=== PATIENT | female | born 1935 | race Caucasian/White ===

== ENCOUNTER 2019-12-15 10:31 | Outpatient (CLI) | payer MEDICARE, OTHER, SELFPAY ==
--- NOTE | 2019-12-15 10:53 | MR_ITS ---
WS: [id number] MRI HEAD WITH CONTRAST WITH ATTENTION TO THE INTERNAL AUDITORY CANALS TECHNIQUE: Sagittal T1, T2 axial, T2 axial flair, axial susceptibility weighted imaging, axial diffus ion weighted images, and coronal T2 images were obtained. Pre and post T1 axial and post T1 coronal i mages. ADC and FSPGR images. Post gadolinium images with attention to the internal auditory canals. A xial fiesta imaging. CLINICAL INFORMATION: DIZZINESS AND GIDDINESS COMPARISON: None. FINDINGS: No evidence of restricted diffusion to suggest acute ischemia. Ventricular system and basal cisterns are patent. Mild small vessel changes. Moderate parenchymal volume loss. Small amount of chronic isch emia in the right frontal subcortical white matter. Normal posterior fossa. Normal vascular flow void s at the skull base. No extra-axial fluid collections. No evidence of mass or mass effect. Mild mucosal thickening in the mastoid air cells. Mild mucosal thickening in the paranasal sinuses. N o hemosiderin on the susceptibility weighted images. Proximal 7th and 8th cranial nerves are normal in appearance. Normal trigeminal nerve root entry zone s. No evidence of enhancing IAC or CP angle mass. No abnormal intracranial enhancement. Normal visual ized dural venous sinuses. MR/MR iac's wo/w con* [id number] IMPRESSION: 1. No evidence of restricted diffusion to suggest acute ischemia. 2. Mild small vessel changes with moderate parenchymal volume loss. 3. Paranasal sinuses and mastoid air cells are well aerated. 4. Proximal 7th and 8th cranial nerves are normal in appearance. No evidence o f enhancing IAC or CP angle mass. 5. No abnormal intracranial enhancement. 6. No hemosiderin and on the susceptibly weighted images.
[2019-12-15 12:04] LABS: Blood Urea Nitrogen 12 mg/dL (8-23)
== END 2019-12-15 10:32 | disposition home or self-care (01) ==
LOC: RADSHAW 10:34
PROVIDERS: PCP Nurse Practitioner Family; Visit Provider Specialist
DX: R42 Dizziness and giddiness (principal)
CPT/HCPCS: 36415; 70553; 82565; 84520; A9579

== ENCOUNTER 2020-02-01 12:02 | Outpatient (CLI) | payer MEDICARE, OTHER, SELFPAY ==
--- NOTE | 2020-02-01 12:10 | MR_ITS ---
WS: [id number] MRI CERVICAL SPINE NONCONTRAST TECHNIQUE: Sagittal T1, T2 and STIR imaging. Axial T2, gradient, and fiesta imaging. CLINICAL INFORMATION: CERVICAL RADICULOPATHY COMPARISON: None. FINDINGS: Mild cervical curve. Exaggeration of the normal cervical lordosis. Mild spondylitic changes with disc osteophyte complexes worse at C5-C6 and C6-C7. C2-C3: Normal.. C3-C4: Mild osteophytic ridging. Mild right and no significant left foraminal narrowing. Mild facet a rthropathy. C4-C5: Mild disc osteophyte complex with endplate ridging. Mild bilateral foraminal narrowing. Modera te facet arthropathy. Spinal canal is patent. C5-C6: Disc osteophyte complex with endplate ridging. Moderate left and mild to moderate right bony f oraminal narrowing. Moderate facet arthropathy. C6-C7: Disc osteophyte complex with small central disc protrusion. Slight contact of the cervical cor d. Mild to moderate left greater than right bony foraminal narrowing. C7-T1: Osteophytic ridging eccentric to the left. Mild left greater than right bony foraminal narrowi ng. Spinal canal is patent. Visualized brain stem structures: Normal. Prevertebral soft tissues: Normal. MR/MR cervical spin wo con* [id number] IMPRESSION: 1. Mild cervical curve with exaggeration the normal cervical lordosis. 2. No high-grade central canal narrowing. Cord signal is normal. 3. Disc osteophyte complexes worse at C5-C6 and C6-C7. Small central disc oste ophyte complex at C6-7 slightly contacts the cervical cord. No significant cent ral canal stenosis. 4. Mild to moderate bony foraminal narrowing worse at left C5-C6 and bilateral C6-C7.
== END 2020-02-01 12:03 | disposition home or self-care (01) ==
LOC: RADWPI 12:07
PROVIDERS: PCP Nurse Practitioner Family; Visit Provider Nurse Practitioner Family
DX: R20.9 Unspecified disturbances of skin sensation (principal); M54.12 Radiculopathy, cervical region; M54.2 Cervicalgia; R42 Dizziness and giddiness; M25.78 Osteophyte, vertebrae; M48.02 Spinal stenosis, cervical region
CPT/HCPCS: 72141

== ENCOUNTER 2020-06-27 09:59 | Outpatient (RCR) | payer MEDICARE, OTHER, SELFPAY | END 2020-07-04 23:59 | disposition home or self-care (01) | LOC: SPT 09:59 | PROVIDERS: PCP Nurse Practitioner Family; Referring Provider Specialist; Visit Provider Specialist | DX: R42 Dizziness and giddiness (principal) | CPT/HCPCS: 97112; 97162 ==

== ENCOUNTER 2020-07-05 06:00 | Outpatient (RCR) | payer MEDICARE, OTHER, SELFPAY | END 2020-08-04 23:59 | disposition home or self-care (01) | LOC: SPT 06:00 | PROVIDERS: PCP Nurse Practitioner Family; Referring Provider Specialist; Visit Provider Specialist | DX: R42 Dizziness and giddiness (principal); H81.11 Benign paroxysmal vertigo, right ear | CPT/HCPCS: 97112 ==